=== PATIENT | female | born 1940 | race Caucasian/White ===

== ENCOUNTER 2017-08-11 08:52 | Inpatient (IN) | payer OTHER, MEDICAID ==
[~2017-08-11] VITALS: Ht 165.1 cm; Wt 66.2 kg
[~2017-08-11 08:52] MED LIST: ALEN70TA46 PO; ASPI-1158 PO; ATOR20TA PO; BENA20TA3 PO; CALC-1232 PO; CHOL100022 PO; CILO50TA PO; DILT240T12 PO; DONE10TA43 PO; FERR-71 PO; HYDR-3927 PO; INSLAN SQ; INSLIS SQ; METF10002 PO; SERT-112 PO
[2017-08-11 10:22] LABS: BASOPHILS % 0.5 % (0.0-2.0); EOSINOPHILS % 0.7 % (0.0-5.0); HEMATOCRIT. 40.9 % (36.0-48.0); HEMOGLOBIN. 13.8 g/dL (12.0-16.0); LYMPHOCYTES % 11.6 % (20.0-50.0); MEAN CORPUSCULAR HEMOGLOBIN 29.8 pg (28.0-32.0); MEAN PLATELET VOLUME 9.1 fl (7.4-10.4); MONOCYTES % 8.9 % (2.0-8.0); NEUTROPHILS % 78.3 % (40.0-76.0); PLATELET 212 x1000/uL (130-400); RED BLOOD CELL COUNT 4.65 mill/uL (4.2-5.4); RED CELL DISTRIBUTION WIDTH 15.1 % (11.6-14.6)
[2017-08-11] MEDS ORDERED: FURO40TA5 PO (10:26)
[2017-08-11] MEDS ORDERED: METO-539 PO (10:26)
[2017-08-11] MEDS ORDERED: PREG50CA PO (10:26)
[2017-08-11 10:27] LABS: INR 1.1; PARTIAL THROMBOPLASTIN TIME 26.6 sec (23.4-31.0); PROTHROMBIN TIME 11.9 sec (9.4-11.6)
[2017-08-11 10:29] LABS: CHLORIDE 104 mEq/L (98-107)
[2017-08-11 10:35] LABS: CREATINE KINASE 126 IU/L (26-192)
[2017-08-11 11:36] LABS: CLARITY URINE CLEAR (CLEAR); COLOR URINE YELLOW (YELLOW); KETONES URINE NEGATIVE (NEGATIVE); LEUKOCYTE ESTERASE URINE NEGATIVE (NEGATIVE); NITRITE URINE NEGATIVE (NEGATIVE); OCCULT BLOOD URINE NEGATIVE (NEGATIVE); PH URINE 6.5 (4.5-8.0); PROTEIN URINE NEGATIVE (NEGATIVE); SPECIFIC GRAVITY URINE 1.009 (1.005-1.030); UROBILINOGEN URINE 0.2 E.U./dL (0.2-1.0)
[2017-08-11 20:15] VITALS: BP 118/61
[2017-08-11 21:11] VITALS: BP 118/61
[2017-08-11] MEDS ORDERED: ASPI-986 PO (23:19)
[2017-08-11] MEDS ORDERED: BENA20TA3 PO (23:23)
[2017-08-11] MEDS ORDERED: DIGO125T82 PO (23:46)
[2017-08-12] MEDS ORDERED: DEXTROSE 50% WATER 50ML SYRINGE IV PRN
[2017-08-12 00:09] VITALS: BP 130/80
[2017-08-12] MEDS: ATORVASTATIN CALCIUM 20MG TABLET PO SCH ×2 (00:11→20:02)
[2017-08-12 04:00] VITALS: BP 147/86
[2017-08-12] MEDS: BLOOD SUGAR DIAGNOSTIC STRIP TEST SCH ×6 (04:00→20:00)
[2017-08-12] MEDS: DIPHENHYDRAMINE 25MG CAPSULE PO PRN ×2 (06:18→20:02)
[2017-08-12 07:08] LABS: CHLORIDE 102 mEq/L (98-107)
[2017-08-12 07:11] LABS: BASOPHILS % 0.5 % (0.0-2.0); HEMATOCRIT. 38.9 % (36.0-48.0); HEMOGLOBIN. 13.1 g/dL (12.0-16.0); LYMPHOCYTES % 19.5 % (20.0-50.0); MEAN CORPUSCULAR HEMOGLOBIN 29.4 pg (28.0-32.0); MEAN CORPUSCULAR VOLUME 87.5 fL (81.0-99.0); MEAN PLATELET VOLUME 9.5 fl (7.4-10.4); MONOCYTES % 10.5 % (2.0-8.0); NEUTROPHILS % 66.5 % (40.0-76.0); PLATELET 210 x1000/uL (130-400); RED BLOOD CELL COUNT 4.45 mill/uL (4.2-5.4)
[2017-08-12 07:31] LABS: HDL CHOLESTEROL 41 mg/dL (40-59); LDL CHOLESTEROL 46 mg/dL (5-100)
[2017-08-12] MEDS: SERTRALINE HCL 100MG TABLET PO SCH (08:11)
[2017-08-12] MEDS: FUROSEMIDE 40MG TABLET PO SCH (08:12)
[2017-08-12] MEDS: CALCIUM CARBONATE 1250MG TABLET (500MG ELEMENTAL CALCIUM) PO SCH ×2 (08:12→17:12)
[2017-08-12] MEDS: PREGABALIN 50 MG CAPSULE PO SCH (08:12)
[2017-08-12] MEDS: ASPIRIN 325MG TABLET PO SCH (08:12)
[2017-08-12] MEDS: DILTIAZEM HCL 240MG ER (24HR) PO SCH (08:12)
[2017-08-12] MEDS: DONEPEZIL HCL 10MG TABLET PO SCH (08:13)
[2017-08-12] MEDS: CHOLECALCIFEROL (D3) 1000 UNIT TABLET PO SCH (08:13)
[2017-08-12 08:27] VITALS: BP 129/68
[2017-08-12] MEDS ORDERED: MEDICATION NOT ON FORMULARY EA (Diltiazem HCl (Diltiazem ER) 240 MG) PO SCH (09:00)
[2017-08-12] MEDS ORDERED: METOPROLOL TARTRATE 50MG TABLET PO SCH (09:00)
[2017-08-12] MEDS: BENAZEPRIL 10MG TABLET PO SCH (09:00)
[2017-08-12 12:41] VITALS: BP 131/66
[2017-08-12 16:08] VITALS: BP 104/55
[2017-08-12 17:03] LABS: DIGOXIN 0.6 ng/mL (0.9-2.0)
[2017-08-12] MEDS: INSULIN LISPRO 100 UNITS/ML SUBCUT SCH ×2 (17:15→20:14)
[2017-08-12] MEDS ORDERED: DIGOXIN 125MCG TABLET PO SCH (18:00)
[2017-08-12 20:00] VITALS: BP 113/63
[2017-08-13] VITALS: BP 131/56
[2017-08-13] MEDS: HYDROCODONE/ACETAMINOPHEN 5/325MG TABLET PO PRN ×2 (03:15→16:38)
[2017-08-13 04:00] VITALS: BP_SYST 119; BP_SYST 132; BP_SYST 139; BP_DIAS 62; BP_DIAS 72
[2017-08-13] MEDS: BLOOD SUGAR DIAGNOSTIC STRIP TEST SCH ×4 (04:00→12:12)
[2017-08-13 06:47] LABS: HEMATOCRIT 40.1 % (36.0-48.0); HEMOGLOBIN 13.6 g/dL (12.0-16.0); MEAN CORPUSCULAR HEMOGLOBIN 29.7 pg (28.0-32.0); MEAN CORPUSCULAR VOLUME 87.4 fL (81.0-99.0); PLATELET 201 x1000/uL (130-400); RED BLOOD CELL COUNT 4.59 mill/uL (4.2-5.4)
[2017-08-13 07:54] LABS: CHLORIDE 101 mEq/L (98-107)
[2017-08-13 08:00] VITALS: BP 123/72
[2017-08-13] MEDS: INSULIN LISPRO 100 UNITS/ML SUBCUT SCH ×2 (08:03→12:58)
[2017-08-13] MEDS: DONEPEZIL HCL 10MG TABLET PO SCH (08:10)
[2017-08-13] MEDS: DILTIAZEM HCL 240MG ER (24HR) PO SCH (08:10)
[2017-08-13] MEDS: PREGABALIN 50 MG CAPSULE PO SCH (08:10)
[2017-08-13] MEDS: ASPIRIN 325MG TABLET PO SCH (08:10)
[2017-08-13] MEDS: FUROSEMIDE 40MG TABLET PO SCH (08:11)
[2017-08-13] MEDS: CALCIUM CARBONATE 1250MG TABLET (500MG ELEMENTAL CALCIUM) PO SCH ×2 (08:11→16:38)
[2017-08-13] MEDS: SERTRALINE HCL 100MG TABLET PO SCH (08:11)
[2017-08-13] MEDS: BENAZEPRIL 10MG TABLET PO SCH (08:11)
[2017-08-13] MEDS: CHOLECALCIFEROL (D3) 1000 UNIT TABLET PO SCH (08:11)
[2017-08-13 12:27] VITALS: BP 117/68
[2017-08-13 16:11] VITALS: BP 108/64
[2017-08-13 16:38] VITALS: BP 108/64
[2017-08-13] MEDS ORDERED: BLOOD SUGAR DIAGNOSTIC STRIP TEST SCH (17:10)
[2017-08-13] MEDS ORDERED: INSULIN LISPRO 100 UNITS/ML SUBCUT SCH (17:40)
== END 2017-08-13 19:00 | disposition home or self-care (01) | DRG 637 ==
LOC: ER 09:04 → INTOOBSV 13:08 → 8WST 13:08 → EDBEDREQ 13:08 → OBSVTOIN 13:08 → EDBEDREQTM 13:08 → ENRESERV 19:13 → 8WST 21:14
PROVIDERS: ADMIT Internal Medicine; ATTEND Internal Medicine
DX: E11.649 Type 2 diabetes mellitus with hypoglycemia without coma (principal); G93.41 Metabolic encephalopathy; E11.40 Type 2 diabetes mellitus with diabetic neuropathy, unspecified; E11.65 Type 2 diabetes mellitus with hyperglycemia; I11.0 Hypertensive heart disease with heart failure; I50.32 Chronic diastolic (congestive) heart failure; I48.2 Chronic atrial fibrillation; I69.354 Hemiplegia and hemiparesis following cerebral infarction affecting left non-dominant side; E78.00 Pure hypercholesterolemia, unspecified; F03.90 Unspecified dementia, unspecified severity, without behavioral disturbance, psychotic disturbance, mood disturbance, and anxiety; I35.1 Nonrheumatic aortic (valve) insufficiency; I34.0 Nonrheumatic mitral (valve) insufficiency; I67.82 Cerebral ischemia; Z79.4 Long term (current) use of insulin; Z79.82 Long term (current) use of aspirin; Z79.899 Other long term (current) drug therapy; Z91.81 History of falling
CPT/HCPCS: 36415; 70450; 71045; 72170; 80048; 80053; 80061; 80162; 81003; 82550; 82962; 83036; 83735; 83880; 84484; 85025; 85027; 85610; 85730; 93005; 93306; 93880; 99285; G0378; J1815; Q0163; A4315

== ENCOUNTER 2018-07-07 22:05 | Emergency (ER) | payer OTHER, MEDICAID ==
[~2018-07-07] VITALS: Ht 152.4 cm; Wt 75.0 kg
[~2018-07-07 22:05] MED LIST changes: -ALEN70TA46 PO; -ASPI-1158 PO; +ASPI-1159 PO; +ASPI-986 PO; +ATOR20TA65 PO; +BENA20TA10 PO; -BENA20TA3 PO; -CILO50TA PO; -FERR-71 PO; +FURO40TA5 PO; -HYDR-3927 PO; +INSU3INS6 SUBCUT; +METF-416 PO; -METF10002 PO; +PREG50CA PO
[2018-07-07 22:55] LABS: BASOPHILS % 0.4 % (0.0-2.0); EOSINOPHILS % 1.2 % (0.0-5.0); HEMATOCRIT. 39.5 % (36.0-48.0); HEMOGLOBIN. 12.7 g/dL (12.0-16.0); LYMPHOCYTES % 27.3 % (20.0-50.0); MEAN CORPUSCULAR HEMOGLOBIN 28.1 pg (28.0-32.0); MEAN CORPUSCULAR VOLUME 87.1 fL (81.0-99.0); NEUTROPHILS % 62.1 % (40.0-76.0); PLATELET 336 x1000/uL (130-400); RED BLOOD CELL COUNT 4.54 mill/uL (4.2-5.4); RED CELL DISTRIBUTION WIDTH 16.5 % (11.6-14.6)
[2018-07-07 22:57] LABS: CHLORIDE 101 mEq/L (98-107)
[2018-07-07 22:59] LABS: INR 1.1; PROTHROMBIN TIME 11.3 sec (9.1-11.1)
[2018-07-07 23:02] LABS: ETHANOL BLOOD < 10 mg/dL
[2018-07-07 23:05] LABS: LDL CHOLESTEROL 43 mg/dL (5-100)
[2018-07-07 23:06] LABS: CREATINE KINASE 28 IU/L (26-192)
[2018-07-08] MEDS ORDERED: SODIUM CHLORIDE 0.9% 1,000 ML IV ONE (00:53)
[2018-07-08] MEDS ORDERED: ASPIRIN 300MG SUPP PR ONE (01:00)
[2018-07-08] MEDS ORDERED: IOHEXOL-350 100 ML BOTTLE ONE (01:33)
[2018-07-08 01:47] LABS: *AMPHETAMINES SCREEN URINE NEGATIVE (NEGATIVE); *BARBITURATES SCREEN URINE NEGATIVE (NEGATIVE)
[2018-07-08 01:48] LABS: CLARITY URINE CLEAR (CLEAR); COLOR URINE YELLOW (YELLOW); KETONES URINE NEGATIVE (NEGATIVE); LEUKOCYTE ESTERASE URINE NEGATIVE (NEGATIVE); NITRITE URINE NEGATIVE (NEGATIVE); OCCULT BLOOD URINE NEGATIVE (NEGATIVE); PROTEIN URINE NEGATIVE (NEGATIVE); SPECIFIC GRAVITY URINE 1.016 (1.005-1.030); UROBILINOGEN URINE 0.2 E.U./dL (0.2-1.0)
[2018-07-08 01:49] LABS: *BENZODIAZEPINES SCREEN URINE NEGATIVE (NEGATIVE); *COCAINE SCREEN URINE NEGATIVE (NEGATIVE); CANNABINOID URINE SCREEN NEGATIVE (NEGATIVE); METHADONE URINE SCREEN NEGATIVE (NEGATIVE); OPIATES URINE SCREEN NEGATIVE (NEGATIVE); PHENCYCLIDINE URINE SCREEN NEGATIVE (NEGATIVE)
[2018-07-08 02:10] VITALS: BP 153/89
== END 2018-07-08 02:11 | disposition short-term general hospital (02) ==
LOC: ER 22:05 → CANBEDREQ 07-08 07:18
DX: I63.9 Cerebral infarction, unspecified (principal); R29.736 NIHSS score 36; I48.2 Chronic atrial fibrillation; E78.00 Pure hypercholesterolemia, unspecified; E11.9 Type 2 diabetes mellitus without complications; Z79.4 Long term (current) use of insulin; Z79.82 Long term (current) use of aspirin
CPT/HCPCS: 36415; 70450; 70496; 70498; 71045; 80053; 80305; 81003; 82550; 82962; 83605; 83721; 84484; 85025; 85610; 87186; 93005; 96360; 99291; J7030; Q9967